=== PATIENT | female | born 1980 | race African-American/Black ===

== ENCOUNTER 2017-04-20 10:24 | Emergency (ER) | payer OTHER ==
[~2017-04-20] VITALS: Ht 170.2 cm; Wt 89.1 kg
[~2017-04-20 10:24] MED LIST: Feosol PO; Motrin PO; PRENATAL VITAM1 EAC3 PO; Percocet 5/325,Endoc PO
[2017-04-20 10:26] VITALS: BP 126/87
== END 2017-04-20 12:14 | disposition left against medical advice (07) ==
LOC: EME 10:24
DX: J02.9 Acute pharyngitis, unspecified (principal); Z53.21 Procedure and treatment not carried out due to patient leaving prior to being seen by health care provider
CPT/HCPCS: 87651 90

== ENCOUNTER 2017-04-20 12:30 | Emergency (ER) | payer OTHER ==
[~2017-04-20] VITALS: Ht 170.2 cm; Wt 89.0 kg
[2017-04-20 13:44] VITALS: BP 127/85
== END 2017-04-20 13:44 | disposition home or self-care (01) ==
LOC: EME 12:30
DX: J02.0 Streptococcal pharyngitis (principal)
CPT/HCPCS: 99281; 99283; J0561

== ENCOUNTER 2017-04-25 10:27 | Emergency (ER) | payer OTHER ==
[~2017-04-25] VITALS: Ht 170.2 cm; Wt 89.5 kg
[2017-04-25] MEDS ORDERED: MOTRIN800 MG PO (12:16)
[2017-04-25] MEDS ORDERED: FLEXERIL10 MG PO (12:16)
[2017-04-25 12:43] VITALS: BP 113/81
== END 2017-04-25 12:49 | disposition home or self-care (01) ==
LOC: EME 10:27
DX: R07.81 Pleurodynia (principal); M25.512 Pain in left shoulder
CPT/HCPCS: 71020; 93005; 99281; 99284